=== PATIENT | female | born 1970 | race Asian ===

== ENCOUNTER 2019-10-01 15:35 | Outpatient (CLI) | payer OTHER | END 2019-10-01 23:12 | disposition home or self-care (01) | LOC: LABW 15:35 → RESP 15:35 → LABW 23:12 | DX: I11.0 Hypertensive heart disease with heart failure (principal); I50.9 Heart failure, unspecified; R60.0 Localized edema; E55.9 Vitamin D deficiency, unspecified | CPT/HCPCS: 36415; 83880; 93005 ==

== ENCOUNTER 2019-11-29 14:06 | Outpatient (CLI) | payer OTHER | END 2019-11-29 19:37 | disposition home or self-care (01) | LOC: RESP 14:06 | DX: R07.89 Other chest pain (principal); R06.02 Shortness of breath; I10 Essential (primary) hypertension; E11.9 Type 2 diabetes mellitus without complications; Z86.79 Personal history of other diseases of the circulatory system | CPT/HCPCS: 93306 ==

== ENCOUNTER 2019-12-04 10:32 | Outpatient (CLI) | payer OTHER ==
[~2019-12-04] VITALS: Ht 162.6 cm; Wt 126.1 kg
== END 2019-12-04 21:59 | disposition home or self-care (01) ==
LOC: NM 10:32
DX: R07.89 Other chest pain (principal); R06.02 Shortness of breath; I10 Essential (primary) hypertension
CPT/HCPCS: A9500; J2785

== ENCOUNTER 2020-08-21 11:31 | Outpatient (CLI) | payer OTHER | END 2020-08-21 20:22 | disposition home or self-care (01) | LOC: RAD 11:31 | DX: M25.561 Pain in right knee (principal); R07.89 Other chest pain; R07.81 Pleurodynia ==

== ENCOUNTER 2020-08-27 14:50 | Outpatient (CLI) | payer OTHER | END 2020-08-27 19:53 | disposition home or self-care (01) | LOC: MAMMO 14:50 | PROVIDERS: ATTEND Family Medicine | DX: N63.20 Unspecified lump in the left breast, unspecified quadrant (principal); N64.4 Mastodynia ==

== ENCOUNTER 2021-03-06 14:03 | Outpatient (CLI) | payer OTHER | END 2021-03-06 22:21 | disposition home or self-care (01) | LOC: RAD 14:03 | PROVIDERS: ATTEND Family Medicine | DX: R10.9 Unspecified abdominal pain (principal); M25.561 Pain in right knee; M25.511 Pain in right shoulder ==

== ENCOUNTER 2021-03-09 14:55 | Outpatient (CLI) | payer OTHER | END 2021-03-09 21:03 | disposition home or self-care (01) | LOC: MAMMO 14:55 | PROVIDERS: ATTEND Family Medicine | DX: N64.4 Mastodynia (principal) ==

== ENCOUNTER 2022-08-11 16:55 | Outpatient (CLI) | payer OTHER | END 2022-08-11 19:02 | disposition home or self-care (01) | LOC: RAD 16:55 | PROVIDERS: ATTEND Family Medicine | DX: M25.531 Pain in right wrist (principal); L81.8 Other specified disorders of pigmentation ==

== ENCOUNTER 2022-12-08 12:45 | Outpatient (CLI) | payer OTHER | END 2022-12-08 19:31 | disposition home or self-care (01) | LOC: MAMMO 12:45 | PROVIDERS: ATTEND Family Medicine | DX: Z12.31 Encounter for screening mammogram for malignant neoplasm of breast (principal) ==

== ENCOUNTER 2022-12-12 23:11 | Emergency (ER) | payer OTHER ==
[~2022-12-12] VITALS: Ht 162.6 cm; Wt 120.2 kg
[2022-12-12 23:11] VITALS: TEMP 98.7
[2022-12-13 00:40] VITALS: BP 104/65
== END 2022-12-13 00:40 | disposition home or self-care (01) ==
LOC: ED 23:11
DX: I95.89 Other hypotension (principal)
CPT/HCPCS: 99283

== ENCOUNTER 2023-01-04 14:25 | Outpatient (CLI) | payer OTHER | END 2023-01-04 19:17 | disposition home or self-care (01) | LOC: US 14:25 | PROVIDERS: ATTEND Family Medicine | DX: R92.8 Other abnormal and inconclusive findings on diagnostic imaging of breast (principal); M79.671 Pain in right foot ==